=== PATIENT | female | born 1950 | race Caucasian/White ===

== ENCOUNTER → 2021-06-05 | Day surgery (SDC) | payer OTHER ==
[~2021-06-05] VITALS: Ht 152.4 cm; Wt 61.3 kg
[~2021-06-05] MED LIST: AMARYL2 MG PO; ASPIRIN EC81 MG PO; CENTRUM SILVER1 EAC1 PO; CLONIDINE HCL0.1 MG PO; DITROPAN5 MG PO; FARXIGA10 MG PO; GLIMEPIRIDE1 MG PO; METFORMIN HCL500 MG PO; PROZAC20 MG PO; ZESTRIL2.5 MG PO; ZOCOR10 MG PO; ZYRTEC10 M3 PO
[2021-06-05 07:54] LABS: HCT 47.4 % (37.0-47.0); HGB 15.6 g/dl (12.5-16.0); MCH 29.8 pg (25.0-31.0); MCHC 32.9 g/dL (32.0-36.0); MCV 90.5 fL (78.0-100.0); MPV 9.5 fL (6.0-9.5); RBC 5.24 M/uL (4.20-5.40); RDW 14.7 % (11.5-14.0); WBC 7.8 K/uL (4.0-10.5)
[2021-06-05 08:11] LABS: BILIRUBIN - TOTAL 0.3 mg/dL (0.2-1.0); BUN/CREAT RATIO (CALC) 23.3 RATIO; CREATININE 0.73 mg/dL (0.51-0.95); GLOBULIN (CALCULATION) 3.5 g/dL; POTASSIUM 3.7 mmol/L (3.5-5.1); TOTAL PROTEIN 8.5 g/dL (6.4-8.2)
== END | disposition home or self-care (01) ==
LOC: FAS 07:20
PROVIDERS: Surgery
DX: Z12.11 Encounter for screening for malignant neoplasm of colon (principal); D12.3 Benign neoplasm of transverse colon; K57.30 Diverticulosis of large intestine without perforation or abscess without bleeding; E11.9 Type 2 diabetes mellitus without complications; Z79.82 Long term (current) use of aspirin; Z79.84 Long term (current) use of oral hypoglycemic drugs
CPT/HCPCS: 36415; 80053; J2250; J2704; J7120